=== PATIENT | male | born 1970 | race Caucasian/White ===

== ENCOUNTER → 2019-03-14 | Outpatient (CLI) | payer BC ==
[~2019-03-14] MED LIST: PANT20TA58 PO
== END | disposition home or self-care (01) ==
LOC: LAB 08:46
PROVIDERS: ATTEND Family Medicine
DX: R07.89 Other chest pain (principal)
CPT/HCPCS: 36415; 82553; 84484

== ENCOUNTER 2020-12-09 20:25 | Inpatient (IN) | payer BC ==
[~2020-12-09] VITALS: Ht 195.6 cm; Wt 123.0 kg
--- NOTE | 2020-12-09 20:34 | PHYS DOC ---
Past History Past Medical History: Diabetes General Adult HPI: HPI: "..I don't know where I pickup this COVID.. 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 tried to be careful.... but I started getting sick..monday.. non - productive cough.. seen Yaron.. my test was positive on Sat... I feel like I got a really bad flu... hurt all over, fever, chills .. Dr. Brink started me on Zithromax .." ..my sats were in the 80'"s at home.. Yaron told me come in if it stayed low..." Patient is a 50 year old male who presents with above hx and complaints of fever, chills, dyspnea with + COVID test on Monday the . Patient normally healthy exception of his diabetes. Patient states his sugars been fairly well controlled. No recent travel. No specific history of ill contacts. No history immunosuppression. Pt. follows with Dr. Brink. Review of Systems: Review of Systems: Constitutional: History of fever or chills Eyes: Denies change in visual acuity HENT: Denies nasal congestion or sore throat Respiratory: History cough and shortness of breath Cardiovascular: Denies chest pain or edema GI: Denies abdominal pain, nausea, vomiting, bloody stools or diarrhea : Denies dysuria Musculoskeletal: Complains of of generalized muscle, joint pain Integument: Denies rash Neurologic: Denies headache, focal weakness or sensory changes Endocrine: Denies polyuria or polydipsia Lymphatic: Denies swollen glands Psychiatric: Denies depression or anxiety Family History: Family History: Noncontributory to presentation Current Medications: Current Meds: See nursing for home meds Allergies: Allergies: Allergies Coded Allergies Type Severity Reaction Last Updated Verified No Known Drug Allergies 06/18/15 No Physical Exam: PE: Constitutional: Moderate acute distress, non-toxic appearance. [] HENT: Normocephalic, atraumatic, bilateral external ears normal, oropharynx moist, no oral exudates, nose normal. [] Eyes: PERRLA, EOMI, conjunctiva normal, no discharge. [] Neck: Normal range of motion, no tenderness, supple, no stridor. [] Cardiovascular: Tachycardia heart rate regular rhythm, no murmur [] Lungs & Thorax: Bilateral breath sounds equal apex with scattered wheezes on auscultation [] Abdomen: Bowel sounds normal, soft, no tenderness, no masses, no pulsatile masses. [] Skin: Warm, diaphoretic,, no erythema, no rash. [] Back: No tenderness, no CVA tenderness. [] Extremities: No tenderness, no cyanosis, no clubbing, ROM intact, no edema. [] Neurologic: Alert and oriented X 3, normal motor function, normal sensory function, no focal deficits noted. [] Psychologic: Affect anxious, judgement normal, mood normal. [] EKG: EKG: My interpretation of EKG shows a sinus rhythm at 92 bpm. No acute morphology. [] Radiology/Procedures: Radiology/Procedures: [][address] [address] IMAGING REPORT Signed PATIENT: YARIEL TAN ACCOUNT: [id number] : 1970 LOCATION: ER AGE: 50 SEX: M EXAM STATUS: REG ER ORD. PHYSICIAN: LUCIO MOJICA MD REASON: Dyspnea, Covid PROCEDURE: PORTABLE CHEST 1V XR CHEST 1V History: Reason: Dyspnea, Covid positive/ Spl. Instructions: / History: Comparison: None. Findings: Ill-defined mid and bibasilar opacities most prominent within the right lung base. No pleural effusion. No pneumothorax. Normal heart size. Impression: 1. Ill-defined mid and bibasilar opacities, can be seen with viral pneumonia given history. Electronically signed by: Bijan Zaragoza DO (12/09/2020 9:24 PM) [facility] DICTATED AND SIGNED BY: BIJAN ZARAGOZA DO DATE: 12/09/202122 CC: MIRANDA BRINK MD; LCUIO MOJICA MD ~MTH0 0 Heart Score: HEART Score for Chest Pain: HEART Score for Chest Pain Response (Comments) Value History Slighlty/Non-Suspicious 0 ECG Normal 0 Age >45 - < 65 1 Risk Factors 1 or 2 Risk Factors 1 Troponin < Normal Limit 0 Total 2 Risk Factors: Risk Factors: DM, Current or recent (<one month) smoker, HTN, HLP, family history of CAD, obesity. Risk Scores: Score 0 - 3: 2.5% MACE over next 6 weeks - Discharge Home Score 4 - 6: 20.3% MACE over next 6 weeks - Admit for Clinical Observation Score 7 - 10: 72.7% MACE over next 6 weeks - Early Invasive Strategies Course & Med Decision Making: Course & Med Decision Making Pertinent Labs and Imaging studies reviewed. (See chart for details) Discussed presentation, testing and tx. plan with Dr. Brink. Advised to Admit to his service. Impression: 1. Respiratory Failure - Hypoxia 2. Elevated D-dimer 1.58 3. + COVID - Confirmed Sat .12/05- Ill the 12/04 4. Hyponatremia 135 5. Hypokalemia 3.3 6. DM - Glucose 204 [] Dragon Disclaimer: Dragon Disclaimer: This electronic medical record was generated, in whole or in part, using a voice recognition dictation system. Departure Departure: Referrals: MIRANDA BRINK MD (PCP) Ernesto Disclaimer This chart was dictated in whole or in part using Voice Recognition software in a busy, high-work load, and often noisy Emergency Department environment. It may contain unintended and wholly unrecognized errors or omissions. LUCIO MOJICA MD Dec 09, 2020 20:34
[2020-12-09] MEDS ORDERED: IV RINGERS SOLUTION,LACTATED 1,000 ML IV SCH (20:45)
[2020-12-09] MEDS ORDERED: ALBUTEROL SULFATE 8GM INHALER. INH ONE (20:45)
[2020-12-09] MEDS ORDERED: ASPIRIN CHEWABLE 81 MG TABLET. PO ONE (20:45)
[2020-12-09 21:24] LABS: BASO % 0 % (0-3); EOS % 0 % (0-3); HEMATOCRIT 45.3 % (39.0-53.0); HEMOGLOBIN 15.3 g/dL (13.0-17.5); LYMPH # 0.5 x10^3/uL (1.0-4.8); LYMPH % 7 % (24-48); MEAN CORPUSCULAR HEMOGLOBIN 30 pg (25-35); MEAN CORPUSCULAR HGB CONC 34 g/dL (31-37); MEAN CORPUSCULAR VOLUME 87 fL (79-100); MONO # 0.2 x10^3/uL (0.0-1.1); MONO % 2 % (0-9); NEUT % 91 % (31-73); PLATELET COUNT 246 x10^3/uL (140-400); RED BLOOD COUNT 5.18 x10^6/uL (4.30-5.70); WHITE BLOOD COUNT 7.7 x10^3/uL (4.0-11.0)
--- NOTE | 2020-12-09 21:26 | RAD ---
XR CHEST 1V History: Reason: Dyspnea, Covid positive/ Spl. Instructions: / History: Comparison: None. Findings: Ill-defined mid and bibasilar opacities most prominent within the right lung base. No pleural effusio n. No pneumothorax. Normal heart size. Impression: 1. Ill-defined mid and bibasilar opacities, can be seen with viral pneumonia given history. Electronically signed by: Bijan Zaragoza DO (12/09/2020 9:24 PM) [facility]
[2020-12-09 21:31] LABS: CALCIUM 8.5 mg/dL (8.5-10.1); CREATININE 1.3 mg/dL (0.7-1.3); GFR 58.4; POTASSIUM 3.3 mmol/L (3.5-5.1)
[2020-12-09] MEDS ORDERED: APIXABAN 5 MG TABLET. PO STA (21:36)
[2020-12-09 21:42] LABS: ALBUMIN 3.3 g/dL (3.4-5.0); C REACTIVE PROTEIN 134.2 mg/L (0-3.3); DIRECT BILIRUBIN 0.1 mg/dL (0.0-0.2); TOTAL BILIRUBIN 0.3 mg/dL (0.2-1.0); TOTAL PROTEIN 7.7 g/dL (6.4-8.2)
[2020-12-09] MEDS ORDERED: ONDANSETRON PF 4 MG/2 ML VIAL. IVP PRN (23:15)
[2020-12-09] MEDS ORDERED: methylPREDNISolone ACETATE 40 MG/ML VIAL. IM ONE (23:15)
[2020-12-09] MEDS: IV RINGERS SOLUTION,LACTATED 1,000 ML IV SCH (23:15)
[2020-12-09] MEDS ORDERED: ACETAMINOPHEN 325 MG TABLET PO PRN (23:15)
[2020-12-10 00:19] LABS: BGAS PH 7.43 (7.35-7.46)
[2020-12-10 00:33] VITALS: BP 149/105
--- NOTE | 2020-12-10 01:27 | NUR ---
PT ADMITTED TO [facility] VIA EMS ACCOMPANIED BY ER STAFF. PT AMBULATED FROM GURNEY TO BED INDEPENDENTLY. PT AOX4. VS OBTAINED. BELONGINGS ACCOUNTED FOR. PT DENIED ANY PAIN AT THIS TIME. HOME MEDS RECONCILED. POC DISCUSSED W/ VERBALIZED UNDERSTANDING. CALL LIGHT IN REACH. WILL CONTINUE TO MONITOR.
[2020-12-10] MEDS ORDERED: AMLO-187 PO (01:32)
--- NOTE | 2020-12-10 02:32 | EKG ---
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
[2020-12-10 05:53] LABS: BASO % 0 % (0-3); EOS % 0 % (0-3); HEMATOCRIT 43.7 % (39.0-53.0); HEMOGLOBIN 14.5 g/dL (13.0-17.5); LYMPH # 0.8 x10^3/uL (1.0-4.8); LYMPH % 18 % (24-48); MEAN CORPUSCULAR HEMOGLOBIN 29 pg (25-35); MEAN CORPUSCULAR HGB CONC 33 g/dL (31-37); MEAN CORPUSCULAR VOLUME 88 fL (79-100); MONO # 0.3 x10^3/uL (0.0-1.1); MONO % 7 % (0-9); NEUT # 3.5 x10^3uL (1.8-7.7); NEUT % 75 % (31-73); PLATELET COUNT 238 x10^3/uL (140-400); WHITE BLOOD COUNT 4.6 x10^3/uL (4.0-11.0)
[2020-12-10 05:57] VITALS: BP 138/82
[2020-12-10 05:59] LABS: CALCIUM 8.6 mg/dL (8.5-10.1); CREATININE 1.2 mg/dL (0.7-1.3); GFR 64.1; POTASSIUM 3.8 mmol/L (3.5-5.1)
[2020-12-10] MEDS ORDERED: IPRATRPIUM/ALBUTEROL 0.5/2.5MG 3 ML NEBU. NEB SCH (08:00)
[2020-12-10] MEDS: IV RINGERS SOLUTION,LACTATED 1,000 ML IV SCH ×3 (08:00→21:03)
[2020-12-10] MEDS: APIXABAN 5 MG TABLET. PO SCH ×2 (08:50→21:03)
[2020-12-10] MEDS: AZITHROMYCIN 250 MG TABLET. PO SCH (08:50)
[2020-12-10] MEDS: LACTOBACILLUS RHAMNOSUS GG 1 CAPSULE. PO SCH ×2 (08:50→21:03)
[2020-12-10] MEDS ORDERED: ZOLPIDEM 5 MG TABLET. PO PRN (10:15)
[2020-12-10] MEDS ORDERED: guaiFENesin DM 200MG/20MG 10 ML SYRUP PO PRN (10:15)
[2020-12-10] MEDS: DEXAMETHASONE SOD PHOS 4 MG/ML VIAL. IVP SCH ×3 (10:57→23:25)
[2020-12-10] MEDS: COLCHICINE 0.6 MG TABLET. PO SCH (10:57)
[2020-12-10] MEDS: amLODIPine BESYLATE 10 MG TABLET PO SCH (10:57)
[2020-12-10 11:28] VITALS: BP 140/75
[2020-12-10 15:40] VITALS: BP 143/86
--- NOTE | 2020-12-10 19:10 | HP ---
ADMIT DATE: 12/09/2020 HISTORY OF PRESENT ILLNESS: A 50-year-old male in with COVID-19 exacerbation of COPD. The patient apparently had been doing fairly poorly since he was diagnosed with COVID-19, came in through the Emergency Room and was admitted. He had low oxygen saturation. The patient's oxygen saturation dropped down into the 80s, came in through the ER. He was admitted for further evaluation and treatment thereof of his COVID-19 pneumonia and acute respiratory failure. PAST MEDICAL HISTORY: Hypertension, GERD. FAMILY HISTORY: Nonremarkable. ALLERGIES: No known allergies. SOCIAL HISTORY: The patient has previous history of smoking. Denies hard drug use. He is a full code. REVIEW OF SYSTEMS: Increased shortness of breath, coughing, achiness, loss of taste, otherwise unremarkable. OBJECTIVE: VITAL SIGNS: Blood pressure 130/80, respiratory rate 18, pulse 95, temperature 99.2, oxygen saturation on room air 96%. HEENT: Otherwise, head was atraumatic, normocephalic. Eyes: PERRLA without jaundice. The mouth and throat were normal. NECK: Supple, no JVD or thyromegaly. LUNGS: Diminished throughout, but basically poor movement in the bases. CARDIOVASCULAR: Regular sinus rhythm, S1, S2, without murmur, rub, thrill, or extra heart sounds. ABDOMEN: Soft, nontender, no rebound or guarding. Positive bowel sounds. No hepatosplenomegaly was noted. EXTREMITIES: No clubbing, cyanosis, nor edema. NEUROLOGIC: The patient was alert and oriented x 3. IMPRESSION: COVID-19 pneumonia, acute respiratory distress with hypoxia. PLAN: Continue on present drug regimen and make further evaluation on him as indicated above. MIRANDA BRINK MD DR: JULIANA/elisabet JOB#: [id number] / [id number]
[2020-12-10 19:36] VITALS: BP 141/73
[2020-12-10 23:08] VITALS: BP 132/72
[2020-12-11] MEDS: IV RINGERS SOLUTION,LACTATED 1,000 ML IV SCH ×4 (00:15→19:00)
[2020-12-11 05:41] VITALS: BP 146/87
[2020-12-11] MEDS: DEXAMETHASONE SOD PHOS 4 MG/ML VIAL. IVP SCH ×4 (06:18→20:45)
--- NOTE | 2020-12-11 06:32 | NUR ---
PT REPORTS SLEEPING FAIR THROUGH NIGHT. GIVEN ROBITUSSIN DM AT HS TO AID PERSISTENT COUGH. PT REPORTS IT WAS MINIMALLY EFFECTIVE. PT MAINTAINING SPO2 AT 93-94% ON RA.
[2020-12-11] MEDS: INSULIN LISPRO 300 UNITS/3 ML VIAL. SQ SCH ×3 (08:00→17:00)
[2020-12-11] MEDS: AZITHROMYCIN 250 MG TABLET. PO SCH (08:25)
[2020-12-11] MEDS: LACTOBACILLUS RHAMNOSUS GG 1 CAPSULE. PO SCH ×2 (08:25→20:44)
[2020-12-11] MEDS: PANTOPRAZOLE 40 MG TABLET. PO SCH (08:25)
[2020-12-11] MEDS: APIXABAN 5 MG TABLET. PO SCH ×2 (08:25→20:44)
[2020-12-11] MEDS: COLCHICINE 0.6 MG TABLET. PO SCH (08:26)
[2020-12-11] MEDS: amLODIPine BESYLATE 10 MG TABLET PO SCH (08:26)
[2020-12-11 10:24] VITALS: BP 166/89
[2020-12-11] MEDS ORDERED: ACETAMINOPHEN 325 MG TABLET PO PRN (10:30)
[2020-12-11 15:07] VITALS: BP 140/73
[2020-12-11 19:34] VITALS: BP 125/70
[2020-12-11] MEDS: IPRATROPIUM/ALBUTEROL 20/100mcg/INH INHALER. INH SCH (20:44)
[2020-12-11 23:30] VITALS: BP 127/65
--- NOTE | 2020-12-12 00:21 | PN ---
DATE: SUBJECTIVE: A 50-year-old male in with COVID-19 pneumonia and acute respiratory distress with hypoxia. The patient says he is feeling a little better today with the ____. Basically, he is making good progress. OBJECTIVE: VITAL SIGNS: Blood pressure 140/70, respiratory rate 20, pulse 95 and afebrile. He continues on IV dexamethasone tapering down off that as well as antibiotic therapy and Combivent therapy. We will go ahead and continue to monitor him accordingly and make further evaluation on him and continue present drug regimen. IMPRESSION: Therefore, COVID-19 pneumonia, acute respiratory distress with hypoxia. MIRANDA BRINK MD DR: JULIANA/elisabet JOB#: [id number] / [id number]
--- NOTE | 2020-12-12 02:26 | NUR ---
Pt was in bed for assessment and med pass. Pt is A&OX4 and able to express own concerns. Pt has had no complaints or discomforts. Pt is up as tolerated in room. Currently pt is in bed sleeping.
[2020-12-12 05:59] VITALS: BP 126/70
[2020-12-12] MEDS: DEXAMETHASONE SOD PHOS 4 MG/ML VIAL. IVP SCH (06:05)
[2020-12-12 06:18] LABS: BASO % 0 % (0-3); EOS % 0 % (0-3); HEMATOCRIT 41.9 % (39.0-53.0); LYMPH # 0.9 x10^3/uL (1.0-4.8); LYMPH % 11 % (24-48); MEAN CORPUSCULAR HEMOGLOBIN 29 pg (25-35); MEAN CORPUSCULAR HGB CONC 33 g/dL (31-37); MEAN CORPUSCULAR VOLUME 88 fL (79-100); MONO # 0.5 x10^3/uL (0.0-1.1); MONO % 5 % (0-9); NEUT # 7.4 x10^3uL (1.8-7.7); NEUT % 84 % (31-73); PLATELET COUNT 343 x10^3/uL (140-400); RED BLOOD COUNT 4.78 x10^6/uL (4.30-5.70); WHITE BLOOD COUNT 8.8 x10^3/uL (4.0-11.0)
[2020-12-12 06:25] LABS: CALCIUM 8.6 mg/dL (8.5-10.1); CREATININE 0.9 mg/dL (0.7-1.3); GFR 89.3; POTASSIUM 3.7 mmol/L (3.5-5.1)
[2020-12-12 07:28] LABS: % ATYL 1 % (0-0); % BANDS 4 % (0-9); % LYMPHS 11 % (24-48); % MONOS 4 % (0-10); % SEGS 80 % (35-66); PLT ESTIMATE ADEQUATE (ADEQUATE); TOXIC GRANULATION PRESENT
[2020-12-12 07:29] LABS: TOXIC VACUOLATION PRESENT
[2020-12-12] MEDS: INSULIN LISPRO 300 UNITS/3 ML VIAL. SQ SCH ×2 (07:30→11:57)
[2020-12-12] MEDS: IPRATROPIUM/ALBUTEROL 20/100mcg/INH INHALER. INH SCH (08:00)
[2020-12-12 08:05] VITALS: BP 126/70
[2020-12-12] MEDS: AZITHROMYCIN 250 MG TABLET. PO SCH (08:05)
[2020-12-12] MEDS: APIXABAN 5 MG TABLET. PO SCH (08:05)
[2020-12-12] MEDS: amLODIPine BESYLATE 10 MG TABLET PO SCH (08:05)
[2020-12-12] MEDS: LACTOBACILLUS RHAMNOSUS GG 1 CAPSULE. PO SCH (08:06)
[2020-12-12] MEDS: PANTOPRAZOLE 40 MG TABLET. PO SCH (08:06)
[2020-12-12] MEDS: COLCHICINE 0.6 MG TABLET. PO SCH (08:06)
[2020-12-12] MEDS ORDERED: AZIT250T6 PO (11:50)
[2020-12-12] MEDS ORDERED: DEXA4TAB63 PO (11:50)
[2020-12-12] MEDS ORDERED: IPRA4AER INH (11:50)
[2020-12-12] MEDS ORDERED: APIX5TAB3 PO (11:50)
== END 2020-12-12 12:42 | disposition home or self-care (01) | DRG 177 ==
LOC: ER 20:25 → 1 SOUTH 23:00
PROVIDERS: ADMIT Family Medicine; ATTEND Family Medicine
DX: U07.1 COVID-19 (principal); J12.82 Pneumonia due to coronavirus disease 2019; J96.01 Acute respiratory failure with hypoxia; E87.1 Hypo-osmolality and hyponatremia; J44.0 Chronic obstructive pulmonary disease with (acute) lower respiratory infection; J44.1 Chronic obstructive pulmonary disease with (acute) exacerbation; E11.9 Type 2 diabetes mellitus without complications; E87.6 Hypokalemia; I10 Essential (primary) hypertension; Z87.891 Personal history of nicotine dependence; K21.9 Gastro-esophageal reflux disease without esophagitis
CPT/HCPCS: 36415; 36600; 71045; 80048; 80076; 82550; 82803; 82947; 83605; 83690; 83735; 84443; 84484; 85007; 85025; 85379; 85610; 85730; 86140; 87040; 93005; 94640; 96360; 96361; J0696; J1100; J1815; J7120; 94664; 99285-25